=== PATIENT | male | born 1995 | race Caucasian/White ===

== ENCOUNTER 2020-12-18 19:35 | Emergency (ER) | payer OTHER ==
[2020-12-18 19:49] VITALS: BP 137/64; PULSE 83; TEMP 98.5; BMI 27.8
[2020-12-18] MEDS ORDERED: DIPHTH,PERTUSS(ACELL),TET 0.5 ML DISP.SYRIN IM ONE ×2 (20:03→20:07)
== END 2020-12-18 21:09 | disposition home or self-care (01) ==
LOC: JER 19:35 → JERFT 19:35
PROC: 3E0234Z Introduction of Serum, Toxoid and Vaccine into Muscle, Percutaneous Approach (ICD-10-PCS; principal; 2020-12-18)
DX: S61.012A Laceration without foreign body of left thumb without damage to nail, initial encounter (principal)
CPT/HCPCS: 90715; 99284-25